=== PATIENT | male | born 1945 | race Caucasian/White ===

== ENCOUNTER 2021-04-18 15:57 | Inpatient (IN) | payer MEDICARE, MEDICAID ==
[~2021-04-18] VITALS: Ht 175.3 cm; Wt 62.6 kg
[2021-04-18 16:42] LABS: BORDETELLA PARAPERTUSSIS Not Detected (Not Detectd); BORDETELLA PERTUSSIS Not Detected (Not Detectd); CHLAMYDIA PNEUMONIAE Not Detected (Not Detectd); CORONAVIRUS HKU1 Not Detected (Not Detectd); CORONAVIRUS NL63 Not Detected (Not Detectd); CORONAVIRUS OC43 Not Detected (Not Detectd); CORONOAVIRUS 229E Not Detected (Not Detectd); HUMAN METAPNEUMOVIRUS Not Detected (Not Detectd); INFLUENZA A Not Detected (Not Detectd); INFLUENZA B Not Detected (Not Detectd); MYCOPLASMA PNEUMONIAE Not Detected (Not Detectd); PARAINFLUENZA VIRUS 1 Not Detected (Not Detectd); PARAINFLUENZA VIRUS 2 Not Detected (Not Detectd); PARAINFLUENZA VIRUS 3 Not Detected (Not Detectd); PARAINFLUENZA VIRUS 4 Not Detected (Not Detectd); RESPIRATORY SYNCYTIAL VIRUS Not Detected (Not Detectd)
[2021-04-18 16:54] LABS: HEMOGLOBIN 12.8 gm/dl (14.0-17.5); RED BLOOD COUNT 4.58 M/UL (4.20-5.50)
[2021-04-18 17:21] LABS: BUN/CREATININE RATIO 15 (0-10)
[2021-04-18 18:12] LABS: HUMAN RHINOVIRUS/ENTEROVIRUS DETECTED (Not Detectd); SARS-CoV-2 NOT DETECTED (Not Detectd)
[2021-04-19 05:58] LABS: HEMOGLOBIN 12.2 gm/dl (14.0-17.5); RED BLOOD COUNT 4.32 M/UL (4.20-5.50); WHITE BLOOD COUNT 15.5 K/UL (4.5-11.0)
[2021-04-19 06:29] LABS: BUN/CREATININE RATIO 13 (0-10)
[2021-04-20 05:27] LABS: HEMOGLOBIN 12.1 gm/dl (14.0-17.5); RED BLOOD COUNT 4.28 M/UL (4.20-5.50); WHITE BLOOD COUNT 15.5 K/UL (4.5-11.0)
[2021-04-20 06:23] LABS: BUN/CREATININE RATIO 11 (0-10)
[2021-04-21 06:08] LABS: HEMOGLOBIN 12.3 gm/dl (14.0-17.5); RED BLOOD COUNT 4.39 M/UL (4.20-5.50); WHITE BLOOD COUNT 12.2 K/UL (4.5-11.0)
[2021-04-21 06:27] LABS: BUN/CREATININE RATIO 14 (0-10)
[2021-04-22 05:00] LABS: HEMOGLOBIN 11.8 gm/dl (14.0-17.5); RED BLOOD COUNT 4.2 M/UL (4.20-5.50); WHITE BLOOD COUNT 14.5 K/UL (4.5-11.0)
[2021-04-22 05:29] LABS: BUN/CREATININE RATIO 11 (0-10)
[2021-04-23 06:23] LABS: HEMOGLOBIN 12.3 gm/dl (14.0-17.5); RED BLOOD COUNT 4.39 M/UL (4.20-5.50); WHITE BLOOD COUNT 15.9 K/UL (4.5-11.0)
[2021-04-23 06:40] LABS: BUN/CREATININE RATIO 10 (0-10)
[2021-04-23 14:12] LABS: ORGANISM ID Not indicated. (.); SPECIMEN SOURCE Urine (.); STREPTOCOCCUS PNEUMONIAE AG Negative (Negative)
[2021-04-23] MEDS ORDERED: HYDROCODON-ACE1 EAC2 PO (16:40)
[2021-04-23] MEDS ORDERED: [UNRECOGNIZED DRUG - OTHER] PO (16:44)
[2021-04-23] MEDS ORDERED: AUGMENTIN 875-1 EACH PO (16:44)
--- NOTE | 2021-04-23 16:53 | NUR ---
INSTRUCTED PATIENT LAB REQ IS IN DISCHARGE PACKET. SCRIPT FOR NEW MEDS INSIDE. TAKES NO MEDS NOW SCRIPTS TIMES 3. HAVE LABS DONE BEFORE FOLLOWING UP WITH DR. AGUILAR ONE WEEK AFTER. VERBALIZED UNDERSTANDING. GENARO TESFAYE R.N
== END 2021-04-23 16:58 | disposition home or self-care (01) | DRG 179 ==
LOC: ER1 15:57 → M/S 17:42 → CDU 17:42 → M/S 19:40
PROVIDERS: Internal Medicine; Internal Medicine Pulmonary Disease; Physician Assistant; Physician Assistant Medical; ADMIT Internal Medicine
PROC: 0B9G8ZX Drainage of Left Upper Lung Lobe, Via Natural or Artificial Opening Endoscopic, Diagnostic (ICD-10-PCS; 2021-04-22)
PROC: 0BDB8ZX Extraction of Left Lower Lobe Bronchus, Via Natural or Artificial Opening Endoscopic, Diagnostic (ICD-10-PCS; 2021-04-22)
PROC: 0BD88ZX Extraction of Left Upper Lobe Bronchus, Via Natural or Artificial Opening Endoscopic, Diagnostic (ICD-10-PCS; 2021-04-22)
PROC: 0B9J8ZX Drainage of Left Lower Lung Lobe, Via Natural or Artificial Opening Endoscopic, Diagnostic (ICD-10-PCS; principal; 2021-04-22 08:30)
DX: J85.2 Abscess of lung without pneumonia (principal); R91.8 Other nonspecific abnormal finding of lung field; K59.00 Constipation, unspecified; R07.9 Chest pain, unspecified; E11.9 Type 2 diabetes mellitus without complications; I10 Essential (primary) hypertension; D72.829 Elevated white blood cell count, unspecified; Z86.16 Personal history of COVID-19; Z90.49 Acquired absence of other specified parts of digestive tract; Z88.8 Allergy status to other drugs, medicaments and biological substances; R63.4 Abnormal weight loss; Z68.20 Body mass index [BMI] 20.0-20.9, adult
CPT/HCPCS: 36415; 71045; 71270; 76000; 80048; 80053; 80202; 82550; 82553; 82565; 82728; 83605; 83615; 83735; 83874; 83880; 84100; 84484; 85025; 85027; 85379; 85610; 85652; 86140; 87015; 87040; 87070; 87116; 87205; 87206; 87278; 87633; 87899; 93005; 96374; 96375; 99284; J1650; J2001; J2185; J2704; J3370; J7030; J7040; J7070; Q9967; U0002

== ENCOUNTER → 2021-04-18 | Outpatient (CLI) | payer MEDICARE ==
[~2021-04-18] MED LIST: AUGMENTIN 875-1 EACH PO; HYDROCODON-ACE1 EAC2 PO; [UNRECOGNIZED DRUG - OTHER] PO
== END ==
LOC: CT 12:26
DX: Z53.8 Procedure and treatment not carried out for other reasons (principal)
CPT/HCPCS: 36415; 71270; 82565; Q9967

== ENCOUNTER → 2021-04-28 | Outpatient (CLI) | payer MEDICARE, MEDICAID, OTHER ==
[2021-04-28 12:00] LABS: RED BLOOD COUNT 4.88 M/UL (4.20-5.50); WHITE BLOOD COUNT 19.2 K/UL (4.5-11.0)
== END ==
LOC: LAB 10:45
PROVIDERS: Internal Medicine
DX: Z01.812 Encounter for preprocedural laboratory examination (principal); Z20.822 Contact with and (suspected) exposure to COVID-19; J85.1 Abscess of lung with pneumonia
CPT/HCPCS: 36415; 85027; 85610; 85730; U0002

== ENCOUNTER → 2021-04-29 | Outpatient (CLI) | payer MEDICARE, MEDICAID | LOC: CT 09:25 | DX: C34.32 Malignant neoplasm of lower lobe, left bronchus or lung (principal); Z88.2 Allergy status to sulfonamides; Z79.2 Long term (current) use of antibiotics; Z79.891 Long term (current) use of opiate analgesic | CPT/HCPCS: 71045; 87070; 88341; 88342 ==

== ENCOUNTER → 2021-05-21 | Outpatient (CLI) | payer MEDICARE, OTHER | LOC: MRI 05-19 09:30 | DX: C34.92 Malignant neoplasm of unspecified part of left bronchus or lung (principal); J98.4 Other disorders of lung | CPT/HCPCS: 36415; 70553; A9577 ==

== ENCOUNTER → 2021-07-02 | Outpatient (CLI) | payer MEDICARE, OTHER ==
[2021-07-02 14:11] LABS: RED BLOOD COUNT 4.55 M/UL (4.20-5.50); WHITE BLOOD COUNT 10.4 K/UL (4.5-11.0)
== END ==
LOC: LAB 11:30
PROVIDERS: Internal Medicine
DX: Z51.81 Encounter for therapeutic drug level monitoring (principal); Z79.899 Other long term (current) drug therapy
CPT/HCPCS: 36415; 80053; 85025

== ENCOUNTER → 2021-07-30 | Outpatient (CLI) | payer MEDICARE ==
[2021-07-30 18:26] LABS: HEMOGLOBIN 9.7 gm/dl (14.0-17.5); RED BLOOD COUNT 3.84 M/UL (4.20-5.50); WHITE BLOOD COUNT 7.7 K/UL (4.5-11.0)
[2021-07-30 18:53] LABS: BUN/CREATININE RATIO 17 (0-10)
== END ==
LOC: LBRF 17:44
PROVIDERS: Internal Medicine
DX: C34.92 Malignant neoplasm of unspecified part of left bronchus or lung (principal)
CPT/HCPCS: 80053; 85007; 85025; 85027

== ENCOUNTER 2021-09-05 18:28 | Emergency (ER) | payer MEDICARE | END 2021-09-05 19:00 | disposition left against medical advice (07) | LOC: ER1 18:28 | DX: Z53.21 Procedure and treatment not carried out due to patient leaving prior to being seen by health care provider (principal) ==

== ENCOUNTER → 2021-09-05 | Outpatient (CLI) | payer MEDICARE | LOC: CT 08-05 13:00 | DX: C34.92 Malignant neoplasm of unspecified part of left bronchus or lung (principal); C79.72 Secondary malignant neoplasm of left adrenal gland; C79.71 Secondary malignant neoplasm of right adrenal gland | CPT/HCPCS: 36415; 71260; 82565; Q9965 ==